=== PATIENT | male | born 1965 | race Caucasian/White ===

== ENCOUNTER → 2020-03-30 | Outpatient (CLI) | payer OTHER ==
[2015-09-10 13:55] VITALS: BP 115/75
[~2020-03-30] MED LIST: AMLO1TAB PO; CALC500T54 PO; CETI10CA PO; CHOL400T36 PO; ESOM20CA PO; FLUT1DIS IH; LORA10CA PO; MELO15TA23 PO; METF500T16 PO; MONT10TA80 PO; MULT-245 PO; OMEP20TA63 PO; TEST200V3 IM
== END | disposition home or self-care (01) ==
LOC: LAB 14:18
PROVIDERS: ATTEND Registered Nurse
DX: Z03.818 Encounter for observation for suspected exposure to other biological agents ruled out (principal)
CPT/HCPCS: 87635

== ENCOUNTER → 2020-04-03 | Day surgery (SDC) | payer OTHER ==
[~2020-04-03] MED LIST changes: +IV RINGERS SOLUTION,LACTATED 1,000 ML IV SCH; +PROPOFOL 10,000 MCG/ML (20ML) VIAL IV ONE
[2020-04-03 15:01] VITALS: BP 116/77
--- NOTE | 2020-04-05 12:06 | PATHOLOGY ---
[facility] Accession Number: [id number] . 01 Material submitted: . colon - TRANSVERSE POLYP. Modifiers: transverse . 02 Diagnosis: Colonic mucosa "transverse polyp biopsy": - Tubular adenoma. - There is no evidence of high-grade dysplasia or malignancy. (SHA:rosa; 04/05/2020) MBR 04/05/2020 1027 Local . 02 Electronically signed: . Chuy Ornelas MD, Pathologist NPI- [id number] . 01 Gross description: . The specimen is received in formalin, labeled "Fitz, Unruly, transverse polyp" and consists of multiple fragments of pink-alejandra tissue measuring 0.6 x 0.4 x 0.2 cm in aggregate which are entirely submitted in A1. (JM; 04/04/2020) JFQ/JFQ 04/04/2020 1550 Local . 02 Pathologist provided ICD-10: D12.3 . 02 CPT . 331805 Specimen Comment: A courtesy copy of this report has been sent to [phone] Specimen Comment: [id number] Specimen Comment: Report sent to / DR PAULINO Specimen Comment: A duplicate report has been generated due to demographic updates. Performed at: 01 [facility] [address], [place], [place] [id number] MD Shailesh Jones MD Phone: [phone] Performed at: 02 [facility] [address] [place], [place] [id number] MD Arsenio Kelly MD Phone: [phone]
== END ==
LOC: SURG 12:21
PROVIDERS: ATTEND Emergency Medicine
DX: Z12.11 Encounter for screening for malignant neoplasm of colon (principal); D12.3 Benign neoplasm of transverse colon; E11.9 Type 2 diabetes mellitus without complications; K21.9 Gastro-esophageal reflux disease without esophagitis; G47.30 Sleep apnea, unspecified; Z79.84 Long term (current) use of oral hypoglycemic drugs; Z83.71 Family history of colonic polyps
CPT/HCPCS: 45380; J2704; J7120; 88305